=== PATIENT | male | born 1960 | race Caucasian/White ===

== ENCOUNTER 2016-06-17 15:05 | Emergency (ER) | payer BC ==
[~2016-06-17] VITALS: Ht 190.5 cm; Wt 113.4 kg
[~2016-06-17 15:05] MED LIST: IBUP800T23 PO; ROBA750T3 PO
[2016-06-17 15:15] VITALS: BP 152/113; PULSE 125; RESP 20; TEMP 100.9; O2SAT 96
[2016-06-17 15:28] VITALS: BP 182/92; PULSE 122; RESP 17; TEMP 100.9; O2SAT 96
[2016-06-17] MEDS ORDERED: VENTAER INH (15:39)
--- NOTE | 2016-06-17 15:42 | PD ---
HPI Chief Complaint: Cold / Flu Symptoms Time Seen by Provider: 15:22 Travel History International Travel<30 days: No Contact w/Intl Traveler<30days: No Traveled to known affect area: No History of Present Illness HPI This patient complains of runny nose and cough and congestion and body aches. Symptoms severity is moderate. No alleviating factors. PFSH Past Medical History Tetanus Vaccination: > 5 Years Influenza Vaccination: No Past Surgical History Abdominal Surgery: Yes (HERNIA INFANT) Social History Alcohol Use: Yes (1-2 DRINKS DAILY) Tobacco Use: No Substance Use: No Allergies-Medications (Allergen,Severity, Reaction): Coded Allergies: No Known Allergies (Verified , 06/17/16) Reported Meds & Prescriptions Reported Meds & Active Scripts Active Ventolin Hfa 18 GM Inh (Albuterol Sulfate) 90 Mcg/Act Aer 1 Puff INH Q4H PRN Review of Systems General / Constitutional: Positive: Fever HENT: No: Headaches Respiratory: Positive: Cough Physical Exam Narrative GENERAL: Well-nourished, well-developed patient in no apparent distress. SKIN: Warm and dry. HEAD: Atraumatic. Normocephalic. EYES: Pupils equal and round. No scleral icterus. No injection or drainage. ENT: No nasal bleeding or discharge. Mucous membranes pink and moist. NECK: Trachea midline. No JVD. CARDIOVASCULAR: Regular rate and rhythm. No murmur appreciated. RESPIRATORY: No accessory muscle use. Clear to auscultation. Breath sounds equal bilaterally. GASTROINTESTINAL: Abdomen soft, non-tender, nondistended. Hepatic and splenic margins not palpable. MUSCULOSKELETAL: No obvious deformities. No clubbing. No cyanosis. No edema. NEUROLOGICAL: Awake and alert. No obvious cranial nerve deficits. Motor grossly within normal limits. Normal speech. PSYCHIATRIC: Appropriate mood and affect; insight and judgment normal. Data Data Last Documented VS Vital Signs Date Time Temp Pulse Resp B/P Pulse Ox O2 Delivery O2 Flow Rate FiO2 06/17/16 15:28 100.9 122 17 182/92 96 Room Air Orders Acetaminophen (Tylenol) (06/17/16 15:45) Ibuprofen (Motrin) (06/17/16 15:45) MDM Medical Decision Making Medical Screen Exam Complete: Yes Emergency Medical Condition: Yes Medical Record Reviewed: Yes Differential Diagnosis Flu syndrome, bronchitis, URI Narrative Course I have reviewed the patient's electronic medical record. Presentation seems most consistent with an acute viral flu syndrome. I gave him a dose of Tylenol and Motrin Albuterol inhaler prescribed as needed for cough congestion wheeze The patient was advised to follow up with their physician and return if they worsen. Diagnosis Primary Impression: Flu syndrome Additional Instructions: The patient was advised to follow up with their physician and return if they worsen. Med/Other Pt SpecificInfo: Prescription(s) given Scripts Albuterol 18 GM Inh (Ventolin Hfa 18 GM Inh)90 Mcg/Act Aer1 Puff INH Q4H PRN ( SHORTNESS OF BREATH) #1 INHALER Ref 0 Prov:Brian Blandon MD 06/17/16 Disposition: 01 DISCHARGE HOME Condition: Stable Brian Blandon MD Jun 17, 2016 15:42
[2016-06-17] MEDS ORDERED: ACETAMINOPHEN 500 MG CPLT PO ONE (15:45)
[2016-06-17] MEDS ORDERED: IBUPROFEN 600 MG TAB PO ONE (15:45)
== END 2016-06-17 16:05 | disposition home or self-care (01) ==
LOC: PHED 15:05
DX: J11.1 Influenza due to unidentified influenza virus with other respiratory manifestations (principal)
CPT/HCPCS: 99283